=== PATIENT | male | born 1995 | race Caucasian/White ===

== ENCOUNTER 2016-10-30 00:23 | Emergency (ER) | payer BC ==
[2016-10-30] MEDS ORDERED: methylPREDNISolone Sodium Succinate 125 MG/2 ML SDV ONE (00:32)
[2016-10-30] MEDS ORDERED: Sodium Chloride 0.9% 10 ML Syringe FLUSH PRN (00:33)
[2016-10-30] MEDS ORDERED: methylPREDNISolone Sodium Succinate 125 MG/2 ML SDV IVPUSH ONE (00:33)
--- NOTE | 2016-10-30 00:39 | EDM.PDOC ---
ED HPI GENERAL MEDICAL PROBLEM - General Chief Complaint: Allergic Reaction Stated Complaint: REACTION Time Seen by Provider: 10/30/16 00:26 Source of Information: Reports: Patient, RN Notes Reviewed History Limitations: Reports: No Limitations - History of Present Illness INITIAL COMMENTS - FREE TEXT/NARRATIVE: Brought by friend Chief complaint Peanut ingestion, history of peanut allergy History of present illness 21-year-old male ate some ice cream which inadvertently was peanut containing, about 20 minutes prior to arrival He does have a history of seasonal allergies but at age 1 had a severe allergic reaction to peanuts, has had skin testing done since then. Caries and EpiPen with him which he's never used Does take Zyrtec once daily for seasonal allergies, did take that today but kol[place] took a couple tablets of Benadryl after having eaten the peanut. No cough or wheezing No fever or chills No throat swelling or voice change. 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 Pain Score (Numeric/FACES): 5 - Related Data Allergies Allergy/AdvReac Type Severity Reaction Status Date / Time nut - unspecified Allergy Anaphylactic Verified 10/30/16 00:37 Shock peanut Allergy Anaphylactic Verified 10/30/16 00:37 Shock Home Meds: Home Meds Cetirizine [ZyrTEC] 10 mg PO DAILY PRN 10/30/16 [History] Sertraline [Zoloft] 100 mg PO DAILY 10/30/16 [History] Past Medical History Immunologic History: Reports: Other (See Below) (Peanut and other nut Allergy) ED ROS ALLERGIC REACTION - Review of Systems Review Of Systems: See Below Constitutional: Reports: Fatigue HEENT: Reports: No Symptoms Respiratory: Reports: No Symptoms Cardiovascular: Reports: No Symptoms GI/Abdominal: Reports: No Symptoms Musculoskeletal: Reports: No Symptoms Skin: Reports: No Symptoms Neurological: Reports: No Symptoms Psychiatric: Reports: No Symptoms Hematologic/Lymphatic: Reports: No Symptoms Immunologic: Reports: Food Allergy ED EXAM GENERAL NO PERIP PULSE - Physical Exam Exam: See Below Exam Limited By: No Limitations General Appearance: Alert, Anxious, Mild Distress, Other (Vital signs normal part from minimal elevation in systolic blood pressure, No difficulty speaking or breathing) Eye Exam: Bilateral Eye: Normal Inspection Ears: Normal External Exam, Normal Canal, Hearing Grossly Normal, Normal TMs Nose: Normal Inspection, Normal Mucosa. No: Nasal Tenderness, Clear Rhinorrhea Throat/Mouth: Normal Inspection, Normal Lips, Normal Teeth, Normal Gums, Normal Oropharynx, Normal Voice, No Airway Compromise Head: Atraumatic, Normocephalic Neck: Normal Inspection, Supple. No: Lymphadenopathy (R), Lymphadenopathy (L) Respiratory/Chest: No Respiratory Distress, Lungs Clear, Normal Breath Sounds, No Accessory Muscle Use, Chest Non-Tender Cardiovascular: Normal Peripheral Pulses, Regular Rate, Rhythm Extremities: Normal Inspection, Non-Tender, No Pedal Edema Neurological: Alert, Oriented, Normal Cognition, No Motor/Sensory Deficits Psychiatric: Normal Mood, Anxious Skin Exam: Warm, Dry, Intact, Normal Color, No Rash Lymphatic: No Adenopathy Course - Vital Signs Last Recorded V/S: Last Vital Signs Temp 36.4 C 10/30/16 00:28 Pulse 91 10/30/16 01:05 Resp 16 10/30/16 01:05 BP 132/82 10/30/16 01:05 Pulse Ox 95 10/30/16 01:05 - Orders/Labs/Meds Orders: Active Orders 24 hr Category Date Time Status Sodium Chloride 0.9% [Saline Flush] Med 10/30/16 00:33 Active 10 ml FLUSH ASDIRECTED PRN Saline Lock Insert [OM.PC] Stat Oth 10/30/16 00:33 Ordered Medication Orders Sodium Chloride (Saline Flush) 10 ml FLUSH ASDIRECTED PRN PRN Reason: Keep Vein Open Last Admin: 10/30/16 00:40 Dose: 10 ml Meds: Medications Generic Name Dose Route Start Last Admin Trade Name Freq PRN Reason Stop Dose Admin Sodium Chloride 10 ml 10/30/16 00:33 10/30/16 00:40 Saline Flush FLUSH 10 ml ASDIRECTED PRN Administration Keep Vein Open Discontinued Medications Generic Name Dose Route Start Last Admin Trade Name Freq PRN Reason Stop Dose Admin Methylprednisolone Sodium Succinate 125 mg 10/30/16 00:33 10/30/16 00:39 Solu-Medrol IVPUSH 10/30/16 00:34 125 mg ONETIME ONE Administration Methylprednisolone Sodium Succinate Confirm 10/30/16 00:32 10/30/16 00:40 Solu-Medrol Administered 10/30/16 00:33 Not Given Dose 125 mg .ROUTE .STK-MED ONE - Re-Assessments/Exams Free Text/Narrative Re-Assessment/Exam: 10/30/16 00:39 21-year-old male who reports a history appeared allergy, PA ingestion about 20 minutes ago, has taken Benadryl and vital signs are normal In view of the lack of symptoms, epinephrine not indicated. The knee Benadryl but for now will give Solu-Medrol Medrol 125 mg IV, saline lock, observation. 10/30/16 01:27 After one hour vital signs mean stable, no respiratory compromise. Drifting off to sleep Oropharynx normal Impression Allergies ingestion History. Allergy Continue antihistamines at least 48 hours Departure - Departure Time of Disposition: 01:23 Disposition: Home, Self-Care 01 Condition: good Clinical Impression: History of peanut allergy, Accidental ingestion of potentially harmful entity - Discharge Information Instructions: Allergies Referrals: PCP,None [Primary Care Provider] - Forms: ED Department Discharge Additional Instructions: Return to emergency if acutely short of breath, high fever, PA vomiting, or severe abdominal pain, collapse or fainting. Continue antihistamine use for at least 48 hours to prevent any possible delayed reaction - My Orders Last 24 Hours: My Active Orders 10/30/16 00:33 Sodium Chloride 0.9% [Saline Flush] 10 ml FLUSH ASDIRECTED PRN Saline Lock Insert [OM.PC] Stat - Assessment/Plan Last 24 Hours: My Active Orders 10/30/16 00:33 Sodium Chloride 0.9% [Saline Flush] 10 ml FLUSH ASDIRECTED PRN Saline Lock Insert [OM.PC] Stat
[2016-10-30 01:40] VITALS: BP 125/78
== END 2016-10-30 01:35 | disposition home or self-care (01) ==
LOC: JP.ED 00:23
DX: T65.91XA Toxic effect of unspecified substance, accidental (unintentional), initial encounter (principal); Z91.010 Allergy to peanuts; Z79.899 Other long term (current) drug therapy
CPT/HCPCS: 96374; 99283; J2930; J7050